=== PATIENT | female | born 1955 | race Hispanic/Latino ===

== ENCOUNTER 2017-09-26 08:53 | Day surgery (SDC) | payer BC ==
[2017-09-25 13:54] VITALS: BP 171/65
[2017-09-25 14:01] LABS: BASOPHILS % (AUTO) 0.3 % (0.0-5.0); HEMATOCRIT 39.8 % (36-48); LYMPHOCYTES % (AUTO) 12.5 % (21.0-51.0); MEAN CORPUSCULAR HEMOGLOBIN 28.4 pg (27.0-33.0); MEAN CORPUSCULAR HGB CONC 34.2 g/dL (32.0-36.0); MEAN CORPUSCULAR VOLUME 83.3 fL (79-99); NEUTROPHILS % (AUTO) 80.2 % (40.0-77.0); PLATELET COUNT (AUTO) 376 K/uL (130-400); RED BLOOD CELL COUNT(AUTO) 4.79 MIL/uL (4.00-5.50); RED CELL DISTRIBUTION WIDTH 15.7 % (11.0-15.5); WHITE BLOOD COUNT (AUTO) 12.7 K/uL (4.8-10.8)
[2017-09-25 14:12] LABS: CREATININE 0.7 mg/dL (0.5-1.5); POTASSIUM 4.2 mmol/L (3.5-5.1)
[2017-09-26] VITALS (16 sets, daily range): BP systolic 115–150; BP diastolic 53–80
[~2017-09-26] VITALS: Ht 157.5 cm; Wt 97.2 kg
[~2017-09-26 08:53] MED LIST: LEVO150 PO; WATER FOR INJECTION,STERILE 20 ML VIAL IJ ONE
[2017-09-26] MEDS ORDERED: CEFAZOLIN SODIUM 1 GM VIAL ONE ×2 (09:56→10:38)
[2017-09-26] MEDS ORDERED: LACTATED RINGERS 1000ML 1,000 ML IV ONE (09:56)
[2017-09-26] MEDS: CEFAZOLIN SODIUM 1 GM VIAL IVP ONE ×2 (10:00→12:22)
[2017-09-26] MEDS ORDERED: MONT10TA21 PO (10:22)
[2017-09-26] MEDS ORDERED: LEVO5TAB29 PO (10:22)
[2017-09-26] MEDS ORDERED: OMEP40CA37 PO (10:22)
[2017-09-26] MEDS ORDERED: SACC250C3 PO (10:22)
[2017-09-26] MEDS ORDERED: LEVO150 PO (10:22)
[2017-09-26] MEDS ORDERED: SODIUM CHLORIDE 0.9% 10 ML VIAL ONE (10:39)
[2017-09-26] MEDS ORDERED: LIDOCAINE PF 2% 5ML ABBOJECT ONE (10:51)
[2017-09-26] MEDS ORDERED: ONDANSETRON HCL 4 MG/2 ML VIAL ONE ×2 (10:51→15:09)
[2017-09-26] MEDS ORDERED: ROCURONIUM BROMIDE 10MG/1ML 5ML VL ONE (10:51)
[2017-09-26] MEDS ORDERED: PROPOFOL 10 MG/ML 20ML VIAL IV ONE (10:52)
[2017-09-26] MEDS ORDERED: DEXAMETHASONE SOD PHOSPHATE 10MG/ML 1ML VIAL ONE (10:52)
[2017-09-26] MEDS ORDERED: FENTANYL CITRATE PF 50 MCG/1 ML 5ML AMP IV ONE (10:52)
[2017-09-26] MEDS ORDERED: MIDAZOLAM HCL 1 MG/ML 2ML VIAL ONE (10:52)
[2017-09-26] MEDS ORDERED: CITRIC ACID/SODIUM CITRATE 30 ML UDCUP ONE (10:57)
[2017-09-26] MEDS ORDERED: METOCLOPRAMIDE 10 MG/2 ML VIAL ONE (11:01)
[2017-09-26] MEDS ORDERED: HYDR-309 PO (13:47)
[2017-09-26] MEDS ORDERED: CEPH500B PO (13:47)
[2017-09-26] MEDS ORDERED: TRAM50TA4 PO (13:47)
[2017-09-26] MEDS ORDERED: NAPR-1192 PO (13:47)
[2017-09-26] MEDS ORDERED: SCOPOLAMINE HYDROBROMIDE 1 EACH ADH..PATCH TD ONE (15:19)
== END 2017-09-26 15:58 | disposition home or self-care (01) ==
LOC: DAH 08:53
PROVIDERS: ATTEND Orthopaedic Surgery
DX: M75.101 Unspecified rotator cuff tear or rupture of right shoulder, not specified as traumatic (principal); M75.51 Bursitis of right shoulder; M19.90 Unspecified osteoarthritis, unspecified site; Z79.899 Other long term (current) drug therapy; Z68.41 Body mass index [BMI] 40.0-44.9, adult; Z85.850 Personal history of malignant neoplasm of thyroid; Z83.3 Family history of diabetes mellitus; Z82.49 Family history of ischemic heart disease and other diseases of the circulatory system; Z88.8 Allergy status to other drugs, medicaments and biological substances
CPT/HCPCS: 23040; 36415; 80048; 85025; 96374; A4218; A4565; A4930; A6204; J0690 ×2; J1100; J2001; J2405 ×2; J2250; J2704; J2765; J3010; J3490; J7120